=== PATIENT | female | born 1960 ===

== ENCOUNTER 2023-02-13 05:40 | Day surgery (SDC) | payer OTHER ==
[~2023-02-13] VITALS: Ht 170.2 cm; Wt 80.7 kg
[~2023-02-13 05:40] MED LIST: COMPLETE OMEGA1 EACH PO; CREST PO; GABAP PO; VITAMIN D310 MCG/1 M PO
== END 2023-02-13 12:40 | disposition home or self-care (01) ==
LOC: CIR.AMB 05:40
PROVIDERS: ATTEND Surgery
DX: K81.1 Chronic cholecystitis (principal); Z88.0 Allergy status to penicillin; Z88.6 Allergy status to analgesic agent; Z20.822 Contact with and (suspected) exposure to COVID-19